=== PATIENT | female | born 1960 | race Caucasian/White ===

== ENCOUNTER 2019-04-26 14:34 | Emergency (ER) | payer SELFPAY ==
[~2019-04-26] VITALS: Ht 154.9 cm; Wt 83.5 kg
[2019-04-26 14:47] VITALS: BP 165/105
--- NOTE | 2019-04-26 15:19 | NUR ---
dr blackwell at bedside
--- NOTE | 2019-04-26 15:30 | NUR ---
c/o left foot pain s/p trip and fall monday. states xrays were done and that she broke 3 of her toes. requesting splint at this time. cap refill < 3 seconds. palable pedal pulse. bp 183/83. [id number]. bed is down, locked, bed rail x 1, ermd to see pt. hx none
--- NOTE | 2019-04-26 15:42 | NUR ---
APPLIED FIBERGLASS SPLINT TO LEFT FOOT WIHTOUT ANY ISSUES
--- NOTE | 2019-04-26 15:45 | NUR ---
cap refill < 3 seconds with splint
[2019-04-26 15:56] VITALS: BP 176/99
--- NOTE | 2019-04-26 15:56 | NUR ---
Patient discharged with v/s stable. Written and verbal after care instructions given and explained. Patient verbalized understanding. Ambulatory with crutches. All questions addressed prior to discharge. Advised to follow up with PMD. discharge explained in broken ugandan/[place] pt given excuse for work. states she does not need one at this time.
== END 2019-04-26 15:56 | disposition home or self-care (01) ==
LOC: MED 14:34
DX: M79.672 Pain in left foot (principal)
CPT/HCPCS: 29515; 99283